=== PATIENT | female | born 2005 | race African-American/Black ===

== ENCOUNTER 2024-12-11 19:41 | Emergency (ER) | payer OTHER, MEDICAID ==
[~2024-12-11] VITALS: Ht 172.7 cm; Wt 53.0 kg
[2024-12-11 19:59] VITALS: O2SAT 100
[2024-12-11] MEDS ORDERED: ACET-2708 MT (22:14)
[2024-12-11] MEDS ORDERED: BO1 TP (22:16)
[2024-12-11] MEDS: ACETAMINOPHEN 500MG TABLET PO ONE (22:42)
[2024-12-11 22:43] VITALS: BP 131/88; PULSE 60; RESP 16; TEMP 37; O2SAT 100
== END 2024-12-11 22:55 | disposition home or self-care (01) ==
LOC: ER 19:41
DX: S80.11XA Contusion of right lower leg, initial encounter (principal); Z79.899 Other long term (current) drug therapy; V49.60XA Unspecified car occupant injured in collision with unspecified motor vehicles in traffic accident, initial encounter; Y93.89 Activity, other specified; Y92.89 Other specified places as the place of occurrence of the external cause; Y99.8 Other external cause status
CPT/HCPCS: 81025; 73562; 73590; 73630; 99284; A6449; Z7610